=== PATIENT | female | born 1945 | race Caucasian/White ===

== ENCOUNTER 2019-12-30 21:04 | Inpatient (IN) | payer MEDICARE, SELFPAY ==
[2019-12-30] VITALS (10 sets, daily range): BP systolic 84–132; BP diastolic 51–70; PULSE 92–157; RESP 17–26; TEMP 35.7–36.6; O2SAT 94–100; BMI 38.7
--- NOTE | ~2019-12-30 | XR_ITS ---
XR chest 2V 12/30/2019 21:35 Indication: Shortness of breath with exertion. Tachypnea. History of A. fib. Procedure: 2 view chest Comparison: Comparison to multiple prior studies sequentially, with oldest reviewed study dated 03/07. Findings: Moderate cardiomegaly. No focal air space disease, pulmonary edema, pleural effusion or dhiraj pected pneumothorax. No acute osseous abnormality. Impression: 1: No acute cardiopulmonary disease. Reviewed, dictated and finalized at location A. Impression: 1: No acute cardiopulmonary disease.
--- NOTE | 2019-12-30 21:15 | ECG_ITS ---
Measurements Intervals [place] Rate: 141 P: NH: 0 QRS: 13 QRSD: 86 T: 133 QT: 317 QTc: 486 Interpretive Statements ATRIAL FIBRILLATION WITH RAPID VENTRICULAR RESPONSE RSR' IN V1 OR V2, CONSIDER RIGHT VENTRICULAR HYPERTROPHY OR RIGHT VCD LOW QRS VOLTAGE IN PRECORDIAL LEADS BORDERLINE ST-T WAVE ABNORMALITY- DIFFUSE LEADS ABNORMAL ECG Electronically Signed On 12-31-2019 10:02:18 CDT by Jaylen Darnell D.O.
[2019-12-30 21:33] LABS: Basophils Percent Auto 0.6 % (0.2-1.2); Eosinophils Percent Auto 0.2 % (0-4.4); Hematocrit 25.4 % (37.0-47.0); Hemoglobin 8.1 g/dL (12.0-15.0); Immature Granulocyte Absolute 0.24 K/mm3 (0.00-0.031); Immature Granulocyte Percent A 3.7 % (0-0.5); Lymphocytes Absolute Auto 1.21 K/mm3 (0.9-3.2); Lymphocytes Percent Auto 18.7 % (18.3-44.2); Mean Corpuscular HGB Conc 31.9 g/dl (32-36); Mean Corpuscular Hemoglobin 34.5 pg (26-34); Mean Corpuscular Volume 108.1 fl (80-100); Mean Platelet Volume 10.4 fl (7.4-10.4); Monocytes Absolute Auto 0.4 K/mm3 (0.1-0.6); Monocytes Percent Auto 6.8 % (2.6-8.5); Neutrophils Absolute Auto 4.5 K/mm3 (1.3-6.7); Nucleated Red Blood Cells Perc 0.5 % (0.0-0.2); Platelet Count Result 145 k/mm3 (150-375); Red Blood Count 2.35 M/mm3 (4.2-5.4); Red Cell Distribution Width 14.4 % (11.5-14.5); White Blood Count 6.5 K/mm3 (4.5-10.0)
[2019-12-30 21:45] LABS: Alanine Aminotransferase 14 U/L (4-35); Albumin Level 3.1 g/dL (3.5-5.1); Alkaline Phosphatase 46 U/L (38-126); Anion Gap 11 mmol/L (8-16); Aspartate Amino Transferase 29 U/L (14-36); Bilirubin,Total 0.7 mg/dL (0.2-1.3); Blood Urea Nitrogen 60 mg/dL (7-17); Calcium 7.7 mg/dL (8.4-10.2); Carbon Dioxide 21 mmol/L (22-30); Chloride 103 mmol/L (98-107); Estimated CRCL calculation 58 ml/min; Estimated Glomerular Filt Rate 54; Glucose 156 mg/dL (65-105); Sodium 135 mmol/L (137-145)
[2019-12-30] MEDS: dilTIAZem HCl INJ 25 MG/5 ML VIAL 10 MG IV PUSH (21:46)
--- NOTE | 2019-12-30 21:49 | PC.NURSE ---
Patient unable to provide urine at this time. Will check in a little bit. Patient will use commode at bedside
--- NOTE | 2019-12-30 22:01 | ED.WEAKNESS ---
HPI - Weakness General Chief complaint: Weakness Stated complaint: weakness Time Seen by Provider: 12/30/19 21:16 History of Present Illness HPI Narrative: Patient is a 74-year-old female who presents the ER with weakness. Ongoing for last 1 to 2 weeks but significantly worsened 3 days ago. Patient is short of breath with exertion. She has no chest pain or orthopnea. Patient reports that she usually has dark schools stools from taking her iron however on Sunday she had a large dark black loose bowel movement. Patient is then felt significantly weaker. She said no loss of consciousness. She is on Xarelto. She sees Dr. Lopez for her cardiac care. No weight gain or new edema. Related Data Allergies Allergy/AdvReac Type Severity Reaction Status Date / Time Penicillins Allergy Unknown Unknown Verified 12/30/19 21:50 Review of Systems Review of Systems: All systems reviewed & are unremarkable except as noted in HPI and below Constitutional: Constitutional: Denies chills, Denies fever(s) and Reports weakness ENT: Denies nasal congestion and Denies sore throat Cardiovascular: Cardiovascular: Denies chest pain, Reports rapid heart rate and Denies radiating jaw, neck or arm pain Respiratory: Respiratory: Denies cough, Reports dyspnea and Denies wheezing Gastrointestinal: Gastrointestinal: Denies abdominal pain, Denies nausea and Denies vomiting PMF Past Medical History Medical History (Updated 12/31/19 @ 00:02 by Mehrdad Nguyen MD) Chronic diastolic congestive heart failure Chronic kidney disease, stage 2 (mild) COPD (chronic obstructive pulmonary disease) Diabetic autonomic neuropathy associated with type 2 diabetes mellitus Essential (primary) hypertension Idiopathic gout, unspecified site Iron deficiency anemia due to chronic blood loss terminal block assembler current use of anticoagulant therapy MDD (major depressive disorder), recurrent episode, mild Mixed hyperlipidemia Persistent atrial fibrillation Type 2 diabetes mellitus with diabetic neuropathy, unspecified Ulcer of esophagus with bleeding Venous insufficiency (chronic) (peripheral) Family History Family History (Updated 12/20/09 @ 21:46 by DOCTOR UNKNOWN) Other Cerebrovascular accident Diabetes mellitus Family history of elevated blood lipids Family history of premature coronary heart disease Hypertension Social History Social History Smoking status: Never smoker Smoking end date: 05/07/77 Alcohol intake: never Exam Narrative: Exam Narrative: GENERAL: Well-appearing, well-nourished, and in no acute distress. HEAD: Normocephalic, atraumatic. ENT: Mucous membranes moist. CHEST: Clear to auscultation. No respiratory distress. HEART: Irregular regular rate and rhythm and tachycardic. Normal peripheral pulses. ABDOMEN: Soft, nontender, nondistended. Guaiac positive on rectal exam without gross blood. EXTREMITIES: Normal range of motion. Chronic lower extremity edema. SKIN: Warm, dry, no rash. NEURO: Alert and oriented x3. PSYCH: Normal mood and affect. Course Course Emergency Course: Admit to hospitalist service. We will add on sotalol to diltiazem drip to try to control heart rate. Patient's blood pressure goes down we will hold the diltiazem and see if the sotalol works. Hemoglobin trending down. Protonix ordered. Blood GI consulted. Vital Signs Vital signs: Vital Signs Temperature 97.8 F 12/30/19 21:04 Pulse Rate 147 H 12/30/19 21:04 Respiratory Rate 23 H 12/30/19 21:04 Blood Pressure 132/70 12/30/19 21:04 Pulse Oximetry 100 12/30/19 21:04 Temperature 97.9 F 12/30/19 23:35 Pulse Rate 92 12/30/19 23:35 Respiratory Rate 20 12/30/19 23:35 Blood Pressure 111/65 12/30/19 23:35 Pulse Oximetry 100 12/30/19 23:35 MDM - Weakness Lab Data Result diagrams: 12/30/19 21:22 12/30/19 21:22 Labs: Lab Results 12/30/19 12/30/19 12/30/19 Range/Units 21:22 21:
[2019-12-30] MEDS: PANTOPRAZOLE SODIUM IV 40 MG VIAL IV PUSH (22:04)
--- NOTE | 2019-12-30 23:10 | PC.NURSE ---
Assumed care of pt. at this time. Report from ANGELINA Thomas
[2019-12-31] VITALS (26 sets, daily range): BP systolic 96–116; BP diastolic 47–78; PULSE 78–124; RESP 18–24; TEMP 36.1–36.7; O2SAT 97–100
--- NOTE | 2019-12-31 00:08 | ADMGEN ---
This patient, Gabriela Castillo, was admitted to IMU Room 202-01. Patient/family oriented to hospital policies and general routines including ID bracelet, bed and alarms, visiting hours, pain management, procedures, bathroom and other care routines, personal items, smoking policy, room service/diet, and visiting hours. Valuables list has been completed. Information on how to activate the Rapid Response Team has been discussed. Patient/Family are encouraged to report perceived risks to care and to ask questions if they do not understand what they are told or what they should do.
[2019-12-31] MEDS: SODIUM CHLORIDE 0.9% IV 1,000 ML 100 ML IV CONT ×2 (00:13→08:57)
[2019-12-31 06:07] LABS: Add Urine Microscopic? YES; Appearance Urine Cloudy (Clear); Bacteria Urine 4+ /hpf; Bilirubin Urine Negative (Negative); Blood Urine Negative (Negative); Color Urine Yellow (Yellow); Glucose Urine UA Negative (Negative); Ketones Urine Negative (Negative); Leukocyte Esterase Ur 2+ LEU/UL (Negative); Mucus Urine Few /lpf; Nitrate Urine Positive (Negative); Protein Urine Negative (Negative); RBC Urine 0-2 /hpf (0-2); Specific Grav Ur 1.015 (1.001-1.035); Squamous Epithelial Cell Urine Many /hpf (Few); WBC Clumps Urine Present /HPF; WBC Urine >75 /hpf
[2019-12-31 07:57] LABS: Glucose Point of Care 122 (65-105)
--- NOTE | 2019-12-31 08:46 | PM.IMHP ---
H&P: HPI History of Present Illness Date/Time: 12/31/19 06:00 Chief complaint: weakness, GI bleed on Sunday Narrative: Gabriela Castillo is a 74 year old female with a past medical history of paroxysmal atrial fibrillation on chronic anticoagulation, successful synchronized cardioversion December 2018, prior GI bleed due to esophagitis and gastric ulcer ( 11/2016) and chronic anemia who presented to the ER For generalized weakness and she suspect she had another GI bleed. She reports that on Sunday she had to large mushy melenic stools. she woke up feeling funny that day. Since that time she has felt more weak. She denies feeling short of breath. She never feels palpitations or her heart racing any time she is in AFib RVR. She has not noticed any increased lower extremity swelling. She does have chronic venous stasis dermatitis that is unchanged. She did notice some burning in her epigastric region at lasted approximately 3 hours on Sunday. she has had some fullness in her upper abdomen and decreased appetite over the last couple of days. Her weight has been stable. She denies chronic reflux symptoms. She has been having an intermittent sore throat for the last couple of weeks. She denies any postnasal drip or nasal congestion. She has not had any cough or congestion. When EMS arrived at the patient's house she was tachycardic. Her heart rate was in the 140s to 150s when she arrived to the ER. She has not had any weight gain, orthopnea or paroxysmal nocturnal dyspnea. She has noticed that she is more pale than usual. At the time of my evaluation the patient is mildly diaphoretic. In the ER the patient received a Cardizem bolus was placed on a Cardizem drip. She did receive 1 dose of oral sotalol. By the time the patient arrived to the IMU she was rate controlled with heart rate in 70s. Her blood pressure was borderline low at 84 systolic. Her Cardizem drip was discontinued. Her heart rate remained controlled in the 80s to 90s. Her systolic blood pressures improved to low 100s. She denies any NSAID use. At the time of my evaluation the patient's home medications have not yet been reconciled. The patient does not have her medication list with her she sent home with her son. Her son is not answering the phone for nursing staff. Review of Systems Review of Systems: Narrative: 12 systems were reviewed with pertinent positives and negatives per HPI. Except as documented in the HPI, all other systems were reviewed and are negative. [facility] Past Medical History Medical History (Updated 12/31/19 @ 09:03 by Karen Hamm DO) Chronic diastolic congestive heart failure Chronic kidney disease, stage 2 (mild) Chronic venous stasis dermatitis COPD (chronic obstructive pulmonary disease) Diabetic autonomic neuropathy associated with type 2 diabetes mellitus Essential (primary) hypertension GERD (gastroesophageal reflux disease) GI bleeding 2002, January 2016, November 2016 Idiopathic gout, unspecified site Iron deficiency anemia due to chronic blood loss retirement current use of anticoagulant therapy MDD (major depressive disorder), recurrent episode, mild Mixed hyperlipidemia Persistent atrial fibrillation aaron with synchronized cardioversion December [address] Lopez Pulmonary embolism 2012 Type 2 diabetes mellitus with diabetic neuropathy, unspecified Surgical History Surgical History (Updated 12/31/19 @ 09:03 by Karen Hamm DO) History of ankle surgery ORIF left ankle July 2007 History of bilateral cataract extraction History of esophagogastroduodenoscopy (EGD) November 2016 demonstrating esophagitis, gastritis and gastric ulcer History of right oophorectomy Hx of tonsillectomy Family History Family History (Updated 12/31/19 @ 09:03 by Karen Hamm DO) Other Adopted Social History Social History (Updated 12/31/19 @ 09:05 by Karen Hamm DO) Social History: She lives alone.
[2019-12-31 09:03] LABS: Hematocrit 22.2 % (37.0-47.0); Hemoglobin 7.2 g/dL (12.0-15.0); Mean Corpuscular HGB Conc 32.4 g/dl (32-36); Mean Corpuscular Hemoglobin 34.4 pg (26-34); Mean Corpuscular Volume 106.2 fl (80-100); Mean Platelet Volume 10.9 fl (7.4-10.4); Platelet Count Result 136 k/mm3 (150-375); Red Blood Count 2.09 M/mm3 (4.2-5.4); Red Cell Distribution Width 14.6 % (11.5-14.5); White Blood Count 5.2 K/mm3 (4.5-10.0)
[2019-12-31 09:14] LABS: Potassium 3.9 mmol/L (3.4-5.0)
[2019-12-31 09:17] LABS: Anion Gap 6 mmol/L (8-16); Blood Urea Nitrogen 56 mg/dL (7-17); Calcium 7.6 mg/dL (8.4-10.2); Carbon Dioxide 25 mmol/L (22-30); Chloride 106 mmol/L (98-107); Estimated CRCL calculation 60 ml/min; Estimated Glomerular Filt Rate 54; Glucose 115 mg/dL (65-105); Sodium 137 mmol/L (137-145)
[2019-12-31 09:29] LABS: Iron 30 ug/dL (37-170)
[2019-12-31 09:39] LABS: Percent Iron Saturation 8 % (20-50)
[2019-12-31 11:51] LABS: Glucose Point of Care 111 (65-105)
--- NOTE | 2019-12-31 12:02 | WPDGICN ---
Assessment and Plan Assessment and plan (1) Acute upper GI bleed: Code(s): K92.2 - Gastrointestinal hemorrhage, unspecified Status: Acute Assessment and Plan: Patient has GI bleeding manifested by melenic stools and low hemoglobin. Upper GI source is suspected. Plan is for EGD tomorrow. Xarelto anticoagulation will be held. Patient will be started on proton pump inhibitor therapy. She will be transfused to a stable hemoglobin. EGD anticipated in the morning. Will follow with you during the interim. 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 She has a prior history of gastric ulcer in 2006. She is chronically anemic. She no longer takes proton pump inhibitors. She denies nonsteroidal anti-inflammatory agent use. She was in usual state of health until Sunday when she began to pass black diarrhea stools. She felt somewhat weak and lightheaded. This improved on Sunday and Sunday but again yesterday on Sunday began to have weakness. She presented to the emergency room was found to have anemia. Stools were Hemoccult positive and black and melenic in nature. Patient denies any overt reddish blood. She denies abdominal pain. Her diet has remained unchanged. She has noted discomfort with eating. Past medical history is significant for atrial fibrillation as stated. History of gastric ulcer in 2017. History of COPD, congestive heart failure, gout, hyperlipidemia, diabetes mellitus. Review of Systems Review of Systems: All systems reviewed & are unremarkable except as noted in HPI and below [facility] Past Medical History Medical History Chronic diastolic congestive heart failure Chronic kidney disease, stage 2 (mild) Chronic venous stasis dermatitis COPD (chronic obstructive pulmonary disease) Diabetic autonomic neuropathy associated with type 2 diabetes mellitus Essential (primary) hypertension GERD (gastroesophageal reflux disease) GI bleeding 2002, January 2016, November 2016 Idiopathic gout, unspecified site Iron deficiency anemia due to chronic blood loss [facility] current use of anticoagulant therapy MDD (major depressive disorder), recurrent episode, mild Mixed hyperlipidemia Persistent atrial fibrillation aaron with synchronized cardioversion December [address] Lopez Pulmonary embolism 2012 Type 2 diabetes mellitus with diabetic neuropathy, unspecified Surgical History Surgical History History of ankle surgery ORIF left ankle July 2007 History of bilateral cataract extraction History of esophagogastroduodenoscopy (EGD) November 2016 demonstrating esophagitis, gastritis and gastric ulcer History of right oophorectomy Hx of tonsillectomy Family History Family History (Updated 12/31/19 @ 09:03 by Karen Hamm DO) Other Adopted Social History Social History Social History: She lives alone. She is a former smoker but had a brief smoking history many years ago. She denies any alcohol use at all. She denies illicit substance use. Her son Jonatan is her power of civil rights attorney. Smoking packs per day: 1 Smoking cigarettes per day: 20.0 Years smoked: 10 Smoking pack-years: 10.00
[2019-12-31] MEDS: PANTOPRAZOLE SODIUM IV 40 MG VIAL IV PUSH ×2 (13:04→20:01)
[2019-12-31] MEDS: SODIUM CHLORIDE 0.9% IV 250 ML 30 ML IV CONT (15:01)
[2019-12-31] MEDS: ACETAMINOPHEN 325 MG TABLET 650 MG PO ×2 (15:50→22:50)
[2019-12-31 16:39] LABS: Glucose Point of Care 112 (65-105)
--- NOTE | 2019-12-31 16:56 | PM.IMPN ---
Progress Note: A&P Assessment and Plan (1) Atrial fibrillation with RVR: Code(s): I48.91 - Unspecified atrial fibrillation Status: Acute Assessment and Plan: patient has chronic atrial fibrillation. I think that part of her RVR was due to volume depletion from blood loss. The patient also may have missed some of her cardiac medications. Patient's rate is now controlled. Will resume the patient's home medications beta-adamaris and diltiazem for blood pressure and rate control (2) Acute upper GI bleed: Code(s): K92.2 - Gastrointestinal hemorrhage, unspecified Status: Acute Assessment and Plan: patient has been started on Protonix IV 40 mg q.12 hours and gastroenterology has been consulted repeat CBC 7.2 ,will transfuse 2 units of packed cells. and follow serially (3) Acute blood loss anemia: Code(s): D62 - Acute posthemorrhagic anemia Status: Acute Assessment and Plan: iron studies compatible with iron deficiency anemia with B12 toward low side suggesting component is chronic also but acute drop in hemoglobin and will transfuse to maintain hemoglobin above 7 (4) Essential (primary) hypertension: Code(s): I10 - Essential (primary) hypertension Status: Acute Assessment and Plan: blood pressure toward low side once transfuse volume increase suspect will be able to tolerate the diltiazem and beta-adamaris to control rate Subjective Date/time seen: 12/31/19 16:56 Interval history: date of visit 12/30. 74-year-old white female with chronic AFib on anticoagulation admitted with weakness dark stools which were guaiac positive. Chronic anemia with hemoglobin 9-10 but presented with hemoglobin of 8.2. no shortness of breath or chest pain no nausea or vomiting tells me her last BM was 3 days ago and usually dark with her iron therapy Exam Narrative: Exam Narrative: PHYSICAL EXAM: blood pressure 100/65 pulse 100 sat 99% on room air General: Mildly ill-appearing, obese HEENT: , no scleral icterus, pupils are equal and reactive, Respiratory: clear to auscultation bilaterally Cardiovascular: irregularly irregular, heart rate ranging between 90 and low 100's, 2+ radial pulses, 1+ bilateral pedal pulses Gastrointestinal: obese, nontender, nondistended, positive bowel sounds Skin: generalized pallor, Musculoskeletal: marked venous stasis /peripheral vascular changes bilateral lower extremities Neurological: alert and oriented, speech is clear, no localizing neurologic deficits noted : deferred Hematologic/lymphatic: no petechiae, bruising or significant anterior cervical lymphadenopathy Objective Data Vital Signs Vital Signs: Vital Signs - 24 hr 12/30/19 21:04 12/30/19 21:17 12/30/19 21:19 Temperature 36.6 C Pulse Rate 147 H 157 H 143 H Respiratory Rate 23 H 21 H Blood Pressure 132/70 104/51 L Pulse Oximetry 100 100 12/30/19 21:48 12/30/19 22:03 12/30/19 22:04 Temperature 35.7 C L Pulse Rate 153 H 128 H 115 H Respiratory Rate 26 H 17 Blood Pressure 127/61 102/61 102/61 Pulse Oximetry 99 100 12/30/19 22:30 12/30/19 22:31 12/30/19 23:35 Temperature 36.6 C Pulse Rate 134 H 92 Respiratory Rate 18 20 Blood Pressure 98/62 L 100/66 111/65 Pulse Oximetry 94 100 12/30/19 23:50 12/31/19 00:20 12/31/19 01:53 Temperature 36.6 C Pulse Rate 100 82 78 Respiratory Rate 20 Blood Pressure 84/57 L Pulse Oximetry 100 12/31/19 01:54 12/31/19 04:00 12/31/19 05:40 Temperature 36.7 C Pulse Rate 82 93 102 H Respiratory Rate 20 Blood Pressure 104/57 L 102/65 Pulse Oximetry 97 12/31/19 08:00 12/31/19 10:00 12/31/19 12:00 Temperature 36.4 C 36.5 C Pulse Rate 100 108 H 102 H Respiratory Rate 24 H 22 H Blood Pressure 116/72 110/69 Pulse Oximetry 100 97 12/31/19 15:04 12/31/19 15:20 12/31/19 16:20 Temperature 36.1 C L 36.6 C 36.4 C L Pulse Rate 102 H 103 H 116 H Respiratory Rat
[2019-12-31] MEDS: METOPROLOL TARTRATE 50 MG TAB 100 MG PO (20:00)
[2019-12-31 21:31] LABS: Glucose Point of Care 116 (65-105)
[2020-01-01] VITALS (17 sets, daily range): BP systolic 93–113; BP diastolic 58–78; PULSE 81–117; RESP 17–22; TEMP 35.7–36.6; O2SAT 94–100
[2020-01-01 05:07] LABS: Basophils Absolute Auto 0.1 K/mm3 (0.0-0.1); Basophils Percent Auto 1.1 % (0.2-1.2); Eosinophils Absolute Auto 0.1 K/mm3 (0-0.3); Eosinophils Percent Auto 2.1 % (0-4.4); Hemoglobin 9.4 g/dL (12.0-15.0); Immature Granulocyte Percent A 2.3 % (0-0.5); Lymphocytes Absolute Auto 0.99 K/mm3 (0.9-3.2); Lymphocytes Percent Auto 22.7 % (18.3-44.2); Mean Corpuscular HGB Conc 32.4 g/dl (32-36); Mean Corpuscular Hemoglobin 32.1 pg (26-34); Mean Platelet Volume 10.5 fl (7.4-10.4); Monocytes Absolute Auto 0.4 K/mm3 (0.1-0.6); Monocytes Percent Auto 8.7 % (2.6-8.5); Neutrophils Absolute Auto 2.8 K/mm3 (1.3-6.7); Neutrophils Percent Auto 63.1 % (45.5-73.1); Nucleated Red Blood Cells Perc 0.5 % (0.0-0.2); Platelet Count Result 135 k/mm3 (150-375); Red Blood Count 2.93 M/mm3 (4.2-5.4); Red Cell Distribution Width 20.6 % (11.5-14.5); White Blood Count 4.4 K/mm3 (4.5-10.0)
[2020-01-01 05:27] LABS: Anion Gap 7 mmol/L (8-16); Blood Urea Nitrogen 39 mg/dL (7-17); Calcium 7.9 mg/dL (8.4-10.2); Carbon Dioxide 24 mmol/L (22-30); Chloride 107 mmol/L (98-107); Estimated CRCL calculation 60 ml/min; Estimated Glomerular Filt Rate 54; Glucose 115 mg/dL (65-105); Potassium 3.8 mmol/L (3.4-5.0); Sodium 138 mmol/L (137-145)
[2020-01-01] MEDS: CYANOCOBALAMIN INJ 1,000 MCG/ML VIAL 1000 MCG IM (06:56)
[2020-01-01] MEDS: PANTOPRAZOLE SODIUM IV 40 MG VIAL IV PUSH (08:15)
--- NOTE | 2020-01-01 09:25 | PC.NURSE ---
Patient to GI lab via stretcher. Report given to ANGELINA Obrien.
[2020-01-01 09:29] LABS: Glucose Point of Care 99 (65-105)
[2020-01-01] MEDS: LACTATED RINGERS 1,000 ML 150 ML IV CONT (09:41)
--- NOTE | 2020-01-01 10:01 | WPDANESEPPF ---
Anes - Initial Pre Proc Eval Procedure: Operation Date: 01/01/20 10:30 Proposed Procedures p Esophagogastroduodenoscopy - Adam Conn MD Date/Time: 01/01/20 10:01 Surgeon: Karen Hamm DO Pre Op Diagnosis: weakness, GI bleed on Sunday Patient Data Age: 74 Gender: F Height: 5 ft 9 in Weight: 118.7 kg Last Vital Signs Temp 97.6 F 01/01/20 09:53 Pulse 117 H 01/01/20 09:53 Resp 20 01/01/20 09:53 BP 110/67 01/01/20 09:53 Pulse Ox 97 01/01/20 09:53 Allergies Allergy/AdvReac Type Severity Reaction Status Date / Time Penicillins Allergy Unknown Unknown Verified 01/01/20 09:48 Home Medications Medication Instructions Recorded Confirmed Type allopurinol 300 mg tablet 300 mg PO DAILY #90 tablet 07/24/19 12/31/19 Rx polysaccharide iron complex 150 mg 150 mg PO BID #180 cap 09/08/19 12/31/19 Rx iron capsule spironolactone 50 mg tablet 50 mg PO DAILY #30 tablet 10/13/19 12/31/19 Rx atorvastatin 20 mg PO DAILY 12/31/19 12/31/19 History diltiazem HCl [DILT-XR] 120 mg PO DAILY 12/31/19 12/31/19 History furosemide 40 mg PO BID 12/31/19 12/31/19 History magnesium 250 mg PO DAILY 12/31/19 12/31/19 History metformin 500 mg PO BID 12/31/19 12/31/19 History metoprolol tartrate 100 mg PO Q12H 12/31/19 12/31/19 History pantoprazole 40 mg PO QAM 12/31/19 12/31/19 History rivaroxaban [Xarelto] 20 mg PO DAILY 12/31/19 12/31/19 History Laboratory Tests 12/30/19 12/31/19 12/31/19 21:53 08:24 08:24 WBC RBC Hgb Hct MCV MCH MCHC RDW Plt Count MPV Immature Gran % (Auto) Neut % (Auto) Lymph % (Auto) Swisher % (Auto) Eos % (Auto) Baso % (Auto) Lymph # (Auto) Swisher # (Auto) Eos # (Auto) Baso # (Auto) Abs Immat Gran (auto) Absolute Neuts (auto) Absolute Nucleated RBC Nucleated RBC % Sodium Potassium Chloride Carbon Dioxide Anion Gap BUN Creatinine Estim Creat Clear Calc Estimated GFR Glucose POC Capillary Glucose Calcium Ferritin 28.70 ng/mL ng/mL (11.1-264) Vitamin B12 277.0 pg/mL pg/mL (239-931) Blood Type A Positive Antibody Screen Negative Crossmatch See Detail 12/31/19 12/31/19 12/31/19 11:32 16:31 21:28 WBC RBC Hgb Hct MCV MCH MCHC RDW Plt Count MPV Immature Gran % (Auto) Neut % (Auto) Lymph % (Auto) Swisher % (Auto) Eos % (Auto) Baso % (Auto) Lymph # (Auto) Swisher # (Auto) Eos # (Auto) Baso # (Auto) Abs Immat Gran (auto) Absolute Neuts (auto) Absolute Nucleated RBC Nucleated RBC % Sodium Potassium Chloride Carbon Dioxide Anion Gap BUN Creatinine Estim Creat Clear Calc Estimated GFR Glucose POC Capillary Glucose 111 mg/dl H mg/dl 112 mg/dl H mg/dl 116 mg/dl H mg/dl (65-105) (65-105) (65-105) Calcium Ferritin Vitamin B12 Blood Type Antibody Screen Crossmatch 01/01/20 01/01/20 01/01/20 04:27 04:27 08:12 WBC 4.4 K/mm3 L K/mm3 (4.5-10.0) RBC 2.93 M/mm3 L M/mm3 (4.2-5.4) Hgb 9.4 g/dL L g/dL (12.0-15.0) Hct 29.0 % L % (37.0-47.0) MCV 99.0 fl D f
[2020-01-01] MEDS: BENZOCAINE (*SP) 60 ML SPRAY CAN (HURRICAINE) 1 SPRAY MUCOUS MEM (10:16)
--- NOTE | 2020-01-01 11:05 | PC.NURSE ---
Patient returned to room following EGD. Report received from ANGELINA Horton.
[2020-01-01] MEDS: MAGNESIUM OXIDE 200 MG TABLET PO (11:24)
[2020-01-01] MEDS: ATORVASTATIN 20 MG TABLET PO (11:24)
[2020-01-01] MEDS: allopurinoL 300 MG TABLET PO (11:24)
[2020-01-01] MEDS: METOPROLOL TARTRATE 50 MG TAB 100 MG PO ×2 (11:34→21:09)
[2020-01-01 12:15] LABS: Glucose Point of Care 106 (65-105)
[2020-01-01 17:17] LABS: Glucose Point of Care 119 (65-105)
--- NOTE | 2020-01-01 17:31 | PM.IMPN ---
Progress Note: A&P Assessment and Plan (1) Atrial fibrillation with RVR: Code(s): I48.91 - Unspecified atrial fibrillation Status: Acute Assessment and Plan: patient has chronic atrial fibrillation. I think that part of her RVR was due to volume depletion from blood loss. The patient also may have missed some of her cardiac medications. Patient's rate is now better controlled. Will resume the patient's home medications beta-adamaris but diltiazem still on hold with low bp (2) Acute upper GI bleed: Code(s): K92.2 - Gastrointestinal hemorrhage, unspecified Status: Acute Assessment and Plan: patient has been started on Protonix IV 40 mg q.12 hours and EGD today revealed gastric ulcers but no active bleeding repeat CBC hgb 9.4 after 2 units PRBC (3) Acute blood loss anemia: Code(s): D62 - Acute posthemorrhagic anemia Status: Acute Assessment and Plan: iron studies compatible with iron deficiency anemia with B12 toward low side suggesting component is chronic also but acute drop in hemoglobin and will transfuse to maintain hemoglobin above 7 cyanocobalmine 1000 microgram today and IV venofer 300 mg today and tomorrow (4) Essential (primary) hypertension: Code(s): I10 - Essential (primary) hypertension Status: Acute Assessment and Plan: blood pressure toward low side and beta-adamaris and still so post transfusions so will hold diltiazem but continue beta-adamaris for rate control Subjective Date/time seen: 01/01/20 17:31 Interval history: date of visit 12/31. 74-year-old white female with chronic AFib on anticoagulation admitted with weakness dark stools which were guaiac positive. Chronic anemia with hemoglobin 9-10 but presented with hemoglobin of 8.2. no shortness of breath or chest pain no nausea or vomiting tells me her last BM was 3 days prior to admission and none yesterday and usually dark with her iron therapy Exam Narrative: Exam Narrative: PHYSICAL EXAM: blood pressure 100/66 pulse 98 sat 95% on room air HEENT: , no scleral icterus, pupils are equal and reactive, Respiratory: clear Cardiovascular: irregularly irregular, heart rate ranging between 90 and low 100's, 2+ radial pulses, 1+ bilateral pedal pulses Gastrointestinal: obese, nontender, nondistended, positive bowel sounds Skin: generalized pallor, Musculoskeletal: marked venous stasis /peripheral vascular changes bilateral lower extremities Neurological: alert and oriented, speech is clear, no localizing neurologic deficits noted Objective Data Vital Signs Vital Signs: Vital Signs - 24 hr 12/31/19 17:42 12/31/19 17:57 12/31/19 18:00 Temperature 36.4 C L 36.4 C L Pulse Rate 112 H 108 H 110 H Respiratory Rate 20 20 Blood Pressure 96/66 L 96/62 L Pulse Oximetry 100 100 12/31/19 18:57 12/31/19 19:53 12/31/19 19:57 Temperature 36.6 C 36.6 C 36.6 C Pulse Rate 107 H 111 H 111 H Respiratory Rate 20 20 20 Blood Pressure 116/78 111/71 111/71 Pulse Oximetry 100 100 100 12/31/19 20:00 12/31/19 20:57 12/31/19 21:33 Temperature 36.6 C 36.6 C Pulse Rate 112 H 109 H 99 Respiratory Rate 20 20 Blood Pressure 105/47 L 110/67 Pulse Oximetry 99 97 12/31/19 22:00 12/31/19 23:54 01/01/20 00:00 Temperature 36.7 C Pulse Rate 108 H 100 95 Respiratory Rate 20 Blood Pressure 100/51 L Pulse Oximetry 97 01/01/20 02:00 01/01/20 04:00 01/01/20 06:00 Temperature 36.6 C Pulse Rate 92 99 111 H Respiratory Rate 20 Blood Pressure 103/74 Pulse Oximetry 97 01/01/20 08:00 01/01/20 09:51 01/01/20 09:53 Temperature 36.4 C 36.4 C Pulse Rate 106 H 117 H Respiratory Rate 22 H 20 Blood Pressure 103/68 110/67 Pulse Oximetry 99 97 97 01/01/20 10:30 01/01/20 10:40 01/01/20 10:50 Temperature Pulse Rate 103 H 104 H 102 H Respiratory Rate 20 17 22 H Blood Pressure 93/58 L 98/67 L 110/78 Pulse Oximetry 100 99 98
--- NOTE | 2020-01-01 17:46 | PC.NURSE ---
This patient, Gabriela Castillo, was transferred to [facility] on 01/01/20 at 1745. Personal belongings sent with patient. Report given to ANGELINA Lopez. Appropriate documentation sent with patient.
--- NOTE | 2020-01-01 17:57 | PC.NURSE ---
This patient, Gabriela Castillo, was received from [[facility] ] on 01/01/20 at 1750. Report given by Rachel. Personal belongings list checked and signed. Patient/family oriented to unit policies and routines
[2020-01-01 17:59] LABS: Glucose Point of Care 118 (65-105)
[2020-01-01] MEDS: PANTOPRAZOLE 40 MG TABLET PO (21:10)
[2020-01-01 21:22] LABS: Glucose Point of Care 129 (65-105)
[2020-01-02 06:00] VITALS: BP 104/70; PULSE 108; RESP 18; TEMP 36.7; O2SAT 100
[2020-01-02 06:16] LABS: Basophils Percent Auto 0.5 % (0.2-1.2); Eosinophils Absolute Auto 0.1 K/mm3 (0-0.3); Eosinophils Percent Auto 1.2 % (0-4.4); Hematocrit 27.9 % (37.0-47.0); Hemoglobin 8.9 g/dL (12.0-15.0); Immature Granulocyte Absolute 0.09 K/mm3 (0.00-0.031); Immature Granulocyte Percent A 2.1 % (0-0.5); Lymphocytes Absolute Auto 0.85 K/mm3 (0.9-3.2); Lymphocytes Percent Auto 20.1 % (18.3-44.2); Mean Corpuscular HGB Conc 31.9 g/dl (32-36); Mean Corpuscular Hemoglobin 32.1 pg (26-34); Mean Corpuscular Volume 100.7 fl (80-100); Mean Platelet Volume 10.4 fl (7.4-10.4); Monocytes Absolute Auto 0.4 K/mm3 (0.1-0.6); Neutrophils Absolute Auto 2.8 K/mm3 (1.3-6.7); Neutrophils Percent Auto 67.1 % (45.5-73.1); Platelet Count Result 132 k/mm3 (150-375); Red Blood Count 2.77 M/mm3 (4.2-5.4); Red Cell Distribution Width 20.3 % (11.5-14.5); White Blood Count 4.2 K/mm3 (4.5-10.0)
[2020-01-02 07:24] LABS: Anion Gap 7 mmol/L (8-16); Blood Urea Nitrogen 27 mg/dL (7-17); Calcium 7.8 mg/dL (8.4-10.2); Carbon Dioxide 25 mmol/L (22-30); Chloride 107 mmol/L (98-107); Estimated CRCL calculation 61 ml/min; Estimated Glomerular Filt Rate 54; Glucose 120 mg/dL (65-105); Potassium 3.8 mmol/L (3.4-5.0); Sodium 139 mmol/L (137-145)
--- NOTE | 2020-01-02 07:53 | WPDGIPROGNO ---
Progress Note: A&P Additional Plan Patient feels good today. No abdominal pain. Tolerating diet. patient reports no ongoing pain. No obvious blood in his stools. Physical exam reveals her to be alert. Vital signs stable. HEENT exam unremarkable. Lungs are clear to auscultation and percussion. Heart is without murmur heart rate is irregularly irregular. Abdomen bowel sounds are present soft nontender with no organomegaly. She is modestly obese. Labs reveal hemoglobin 8.9, hematocrit 27.9, MCV 100. Impression 1. Multiple gastric ulcers. This was etiology for recent GI blood loss. Plan is to avoid nonsteroidal anti-inflammatory agents. Histology is still pending and will be reviewed next week after discharge. Anticipate follow-up EGD in 2 months. Patient should be maintained on proton pump inhibitor long-term. She has a history of gastric ulcer several years ago. I would advise continuing PPI even after healing of these ulcers. Hopefully discharge today. 2. Atrial fibrillation. Patient previously on anticoagulation. I would avoid Xarelto anticoagulation for 2 weeks prior to resuming. Resume only if necessary per cardiology service. Subjective Date/time seen: 01/02/20 07:53 Objective Data Vital Signs Vital Signs: Vital Signs - 24 hr 01/01/20 08:00 01/01/20 09:51 01/01/20 09:53 Temperature 97.6 F 97.6 F Pulse Rate 106 H 117 H Respiratory Rate 22 H 20 Blood Pressure 103/68 110/67 Pulse Oximetry 99 97 97 01/01/20 10:30 01/01/20 10:40 01/01/20 10:50 Temperature Pulse Rate 103 H 104 H 102 H Respiratory Rate 20 17 22 H Blood Pressure 93/58 L 98/67 L 110/78 Pulse Oximetry 100 99 98 01/01/20 11:30 01/01/20 11:34 01/01/20 12:00 Temperature 97.7 F Pulse Rate 108 H 100 109 H Respiratory Rate 22 H Blood Pressure 96/60 L Pulse Oximetry 98 01/01/20 16:00 01/01/20 18:10 01/01/20 21:09 Temperature 97.5 F L 96.3 F L Pulse Rate 98 81 108 H Respiratory Rate 20 18 Blood Pressure 99/66 L 95/70 L Pulse Oximetry 95 94 01/01/20 22:00 01/02/20 06:00 Temperature 97.7 F 98.0 F Pulse Rate 105 H 108 H Respiratory Rate 18 18 Blood Pressure 113/69 104/70 Pulse Oximetry 99 100 Intake/Output Intake/Output: Intake & Output 12/30/19 12/31/19 01/01/20 01/02/20 23:59 23:59 23:59 23:59 Intake Total 3012 1115 300 Output Total 1400 1300 Balance 1612 -185 300 Meds/Results Medications: Active Medications Generic Name Dose Route Start Last Admin Trade Name Freq PRN Reason Stop Dose Admin Acetaminophen 650 mg 12/31/19 15:41 12/31/19 22:50 Tylenol Tablet PO 650 mg Q6H PRN Administration Mild Pain (1-3) or Fever Allopurinol 300 mg 01/01/20 09:00 01/01/20 11:24 Zyloprim PO 300 mg DAILY WANDY Administration Atorvastatin Calcium 20 mg 01/01/20 09:00 01/01/20 11:24 Lipitor PO 20 mg DAILY WANDY Administration Dextrose 12.5 gm 12/31/19 18:14 Dextrose 50% Syringe IV PUSH PRN PRN Hypoglycemia Protocol Glucagon 1 mg 12/31/19 18:14 Glucagon For Inj IM PRN PRN Hypoglycemia Protocol Glucose 15 gm 12/31/19 18:14 Glutose 15 PO PRN PRN Hypoglycemia Protocol Dextrose 1,000 mls @ 100 mls/hr 12/31/19 18:14 Dextrose 5% 1,000 Ml IVPB PRN PRN Hypoglycemia Protocol Magnesium Oxide 200 mg 01/01/20 09:00 01/01/20 11:24 Mag-Ox PO 01/31/20 09:01 200 mg DAILY WANDY Administration Metoprolol Tartrate 100 mg 12/31/19 21:00 01/01/20 21:09 Lopressor PO 100 mg Q12HR WANDY Administration Pantoprazole Sodium 40 mg 01/01/20 21:00 01/01/20 21:10 Protonix PO 40 mg Q12HR WANDY Administration Radiology Results: ITS Impressions Chest X-Ray 12/30/19 21:42 Impression: 1: No acute cardiopulmonary disease. Labs Labs: Laboratory Results - last 24 hr 01/01/20 01/01/20 01/01/20 08:12 11:23 15:51 WBC RBC Hgb Hct MCV
[2020-01-02 08:37] LABS: Glucose Point of Care 118 (65-105)
[2020-01-02 09:10] VITALS: PULSE 88
[2020-01-02] MEDS: METOPROLOL TARTRATE 50 MG TAB 100 MG PO (09:10)
[2020-01-02] MEDS: PANTOPRAZOLE 40 MG TABLET PO (09:11)
[2020-01-02] MEDS: ATORVASTATIN 20 MG TABLET PO (09:11)
[2020-01-02] MEDS: MAGNESIUM OXIDE 200 MG TABLET PO (09:11)
[2020-01-02] MEDS: allopurinoL 300 MG TABLET PO (09:11)
--- NOTE | 2020-01-02 10:08 | WPDANESPN ---
Anes - Prog Note Post-Op Date/Time: 01/02/20 10:08 Cardiovascular status: normal Respiratory status: normal Airway patency: baseline Mental status: baseline Post-Op hydration status: normal Vital Signs: Last Vital Signs Temp 36.7 C 01/02/20 06:00 Pulse 88 01/02/20 09:10 Resp 18 01/02/20 06:00 BP 104/70 01/02/20 06:00 Pulse Ox 100 01/02/20 06:00 I/O: Intake & Output 01/01/20 01/02/20 01/02/20 23:59 07:59 15:59 Intake Total 120 300 120 Balance 120 300 120 Laboratory Tests 01/02/20 05:41 01/02/20 05:41 01/01/20 01/01/20 01/01/20 11:23 15:51 17:55 WBC RBC Hgb Hct MCV MCH MCHC RDW Plt Count MPV Immature Gran % (Auto) Neut % (Auto) Lymph % (Auto) [place] % (Auto) Eos % (Auto) Baso % (Auto) Lymph # (Auto) [place] # (Auto) Eos # (Auto) Baso # (Auto) Abs Immat Gran (auto) Absolute Neuts (auto) Absolute Nucleated RBC Nucleated RBC % Sodium Potassium Chloride Carbon Dioxide Anion Gap BUN Creatinine Estim Creat Clear Calc Estimated GFR Glucose POC Capillary Glucose 106 119 H 118 H Calcium 01/01/20 01/02/20 01/02/20 21:13 05:41 05:41 WBC 4.2 L RBC 2.77 L Hgb 8.9 L Hct 27.9 L MCV 100.7 H MCH 32.1 MCHC 31.9 L RDW 20.3 H Plt Count 132 L MPV 10.4 Immature Gran % (Auto) 2.1 H Neut % (Auto) 67.1 Lymph % (Auto) 20.1 [place] % (Auto) 9.0 H Eos % (Auto) 1.2 Baso % (Auto) 0.5 Lymph # (Auto) 0.85 L [place] # (Auto) 0.4 Eos # (Auto) 0.1 Baso # (Auto) 0.0 Abs Immat Gran (auto) 0.09 H Absolute Neuts (auto) 2.8 Absolute Nucleated RBC 0.0 Nucleated RBC % 0.0 Sodium 139 Potassium 3.8 Chloride 107 Carbon Dioxide 25 Anion Gap 7 L BUN 27 H D Creatinine 1.00 Estim Creat Clear Calc 61 Estimated GFR 54 L Glucose 120 H POC Capillary Glucose 129 H Calcium 7.8 L 01/02/20 08:27 WBC RBC Hgb Hct MCV MCH MCHC RDW Plt Count MPV Immature Gran % (Auto) Neut % (Auto) Lymph % (Auto) [place] % (Auto) Eos % (Auto) Baso % (Auto) Lymph # (Auto) [place] # (Auto) Eos # (Auto) Baso # (Auto) Abs Immat Gran (auto) Absolute Neuts (auto) Absolute Nucleated RBC Nucleated RBC % Sodium Potassium Chloride Carbon Dioxide Anion Gap BUN Creatinine Estim Creat Clear Calc Estimated GFR Glucose POC Capillary Glucose 118 H Calcium Microbiology 12/31/19 05:50 Urine Clean Catch Urine Culture - Final Escherichia Coli Post-procedural complaints: none Patient Feedback: Patient satisfied with anesthetic care.
[2020-01-02] MEDS: IRON SUCROSE COMPLEX 400 MG in SODIUM CHLORIDE 0.9% IV 250 ML 108 MG IVPB (10:14)
[2020-01-02 12:40] LABS: Glucose Point of Care 113 (65-105)
[2020-01-02 14:00] VITALS: BP 110/60; PULSE 90; RESP 20; TEMP 36.6; O2SAT 100
--- NOTE | 2020-01-07 13:06 | PM.DS ---
DS: Admitting Diagnosis Admitting Diagnosis Admitting Diagnosis: weakness, GI bleed on Sunday DS: Discharge Diagnosis Discharge Diagnosis (1) Atrial fibrillation with RVR: Code(s): I48.91 - Unspecified atrial fibrillation Status: Acute Assessment and Plan: patient has chronic atrial fibrillation. I think that part of her RVR was due to volume depletion from blood loss. The patient also may have missed some of her cardiac medications. Patient's rate better controlled at discharge. resumed the patient's home medications beta-adamaris and with increased bp diltiazem added back at discharge patient instructed not to resume her Xarelto at least until 01/18 and discuss with primary care or Cardiology before doing so (2) Acute upper GI bleed: Code(s): K92.2 - Gastrointestinal hemorrhage, unspecified Status: Acute Assessment and Plan: patient was started on Protonix IV 40 mg q.12 hours and EGD today revealed gastric ulcers but no active bleeding. D/c with protonix bid and repeat EGD 6-8 weeks CBC hgb 9.4 after 2 units PRBC and 8.9 at discharge (3) Acute blood loss anemia: Code(s): D62 - Acute posthemorrhagic anemia Status: Acute Assessment and Plan: iron studies compatible with iron deficiency anemia with B12 toward low side suggesting component is chronic also but acute drop in hemoglobin was definite acute blood loss also cyanocobalmine 1000 microgram and IV venofer 600 mg today total before d/c (4) Essential (primary) hypertension: Code(s): I10 - Essential (primary) hypertension Status: Acute Assessment and Plan: blood pressure toward low side initially but beta adamaris and at discharge diltiazem resumed (5) UTI (urinary tract infection): Code(s): N39.0 - Urinary tract infection, site not specified Status: Acute Assessment and Plan: had asymptomatic pyuria which grew greater than 100,000 E coli sensitive to all but quinolones. receives 2 separate doses of ceftriaxone while here and will continue Macrobid 100 b.i.d. for 3 more days after discharge DS: Summary Hospital Course Hospital Course: 74-year-old hypertensive female with chronic AFib on anticoagulation admitted with upper GI bleed. Placed on Protonix drip and bleeding subsided. EGD revealed gastric ulcer with no active bleeding. Received 2 units of packed cells and discharging lobe 8.9. no anticoagulation until 01/18 and not until have discussed with primary or grounds/maintenance specialist. repeat EGD 6-8 weeks Time Spent with Patient Time attestation: Total time spent providing and/or coordinating discharge services: 35 minutes Exam Narrative: Exam Narrative: condition on discharge blood pressure 110/60 pulse is 90 saturating 100% on room air afebrile lungs clear CV irregular abdomen soft nontender extremities without edema distal pulses 1+ taking a regular diet and having no more melanotic stools DS: Data Data Completed and Pending Completed studies during hospitalization: Pending at discharge 01/01/20 10:25 Surgical [PTH] Routine Discharge Plan Discharge Attending physician on discharge: Artemio Valdez Consulting providers: Adam Conn ; Jaylen Darnell ; Jay Crane Discharging Clinician: Artemio Valdez Patient Disposition: Home, Self-Care Activity: as tolerated Diet: diabetic and low sodium Discharge Instructions: Schedule follow up EGD with Dr Nolen office in 2 months. Patient Instructions: Antibiotic Form, Rivaroxaban (By mouth), A-fib (Atrial Fibrillation) (DC), Diet for Stomach Ulcers and Gastritis (GEN), Type 2 Diabetes in the Older Adult (DC) Stand Alone Forms: General Discharge Information Follow-up/Referrals: Rebeka Casarez MD [Primary Care Provider] - 2 Weeks Discharge Medications: New nitrofurantoin monohyd/m-cryst [Macrobid] 100 mg capsule 100 mg PO Q12H 3 Days Qty: 6 R
== END 2020-01-02 15:25 | disposition home or self-care (01) | DRG 378 ==
LOC: ANHED 22:41 → ANHIMU 23:13 → ANH3MEDSUR 01-01 18:58 → ANHIMU 01-05 16:00
PROVIDERS: Internal Medicine Gastroenterology; Admitting Provider Internal Medicine; Emergency Provider Emergency Medicine; PCP Family Medicine; Visit Provider Internal Medicine
PROC: 0DJ08ZZ Inspection of Upper Intestinal Tract, Via Natural or Artificial Opening Endoscopic (ICD-10-PCS; CPT 43235; principal; 2020-01-01 10:30)
DX: K25.0 Acute gastric ulcer with hemorrhage (principal); D62 Acute posthemorrhagic anemia; I13.0 Hypertensive heart and chronic kidney disease with heart failure and stage 1 through stage 4 chronic kidney disease, or unspecified chronic kidney disease; I50.32 Chronic diastolic (congestive) heart failure; F33.9 Major depressive disorder, recurrent, unspecified; I48.19 Other persistent atrial fibrillation; E11.22 Type 2 diabetes mellitus with diabetic chronic kidney disease; N18.2 Chronic kidney disease, stage 2 (mild); R82.81 Pyuria; B96.20 Unspecified Escherichia coli [E. coli] as the cause of diseases classified elsewhere; J44.9 Chronic obstructive pulmonary disease, unspecified; E11.42 Type 2 diabetes mellitus with diabetic polyneuropathy; E78.2 Mixed hyperlipidemia; I87.2 Venous insufficiency (chronic) (peripheral); Z79.01 Long term (current) use of anticoagulants; Z98.42 Cataract extraction status, left eye; Z98.41 Cataract extraction status, right eye; Z90.721 Acquired absence of ovaries, unilateral; Z87.891 Personal history of nicotine dependence; E66.9 Obesity, unspecified; Z68.39 Body mass index [BMI] 39.0-39.9, adult
CPT/HCPCS: 36415; 36430; 71046; 80048; 80053; 81001; 82607; 82728; 83540; 83550; 85025; 85027; 86850; 86900; 86901; 86920; 87077; 87086; 87088; 87186; 88305; 88342; 93005; 96361; 96374; 96375; 97161; 97165; 99285; A9270; C9113; G0378; J0696; J1756; J3420; J7030; J7050; J7120; P9016

== ENCOUNTER 2020-01-08 11:46 | Outpatient (CLI) | payer MEDICARE, SELFPAY ==
[2020-01-08 11:59] LABS: Basophils Percent Auto 0.8 % (0.2-1.2); Eosinophils Absolute Auto 0.1 K/mm3 (0-0.3); Eosinophils Percent Auto 1.7 % (0-4.4); Hematocrit 32.3 % (37.0-47.0); Hemoglobin 10.1 g/dL (12.0-15.0); Immature Granulocyte Percent A 1.9 % (0-0.5); Lymphocytes Percent Auto 17.4 % (18.3-44.2); Mean Corpuscular HGB Conc 31.3 g/dl (32-36); Mean Corpuscular Volume 102.2 fl (80-100); Monocytes Absolute Auto 0.5 K/mm3 (0.1-0.6); Monocytes Percent Auto 9.1 % (2.6-8.5); Neutrophils Absolute Auto 3.6 K/mm3 (1.3-6.7); Neutrophils Percent Auto 69.1 % (45.5-73.1); Platelet Count Result 230 k/mm3 (150-375); Red Blood Count 3.16 M/mm3 (4.2-5.4); Red Cell Distribution Width 18.1 % (11.5-14.5); White Blood Count 5.2 K/mm3 (4.5-10.0)
[2020-01-08 12:12] LABS: Anion Gap 6 mmol/L (8-16); Blood Urea Nitrogen 14 mg/dL (7-17); Calcium 8.3 mg/dL (8.4-10.2); Carbon Dioxide 26 mmol/L (22-30); Chloride 105 mmol/L (98-107); Estimated Glomerular Filt Rate 54; Glucose 118 mg/dL (65-105); Sodium 137 mmol/L (137-145)
== END 2020-01-08 11:47 | disposition home or self-care (01) ==
LOC: ANHLAB 11:49
PROVIDERS: PCP Family Medicine; Visit Provider Internal Medicine
DX: I10 Essential (primary) hypertension (principal); K92.2 Gastrointestinal hemorrhage, unspecified
CPT/HCPCS: 36415; 80048; 85025

== ENCOUNTER 2020-03-03 01:36 | Outpatient (CLI) | payer MEDICARE, SELFPAY ==
[2020-03-03 18:17] LABS: SARS-CoV-2 RNA PCR Negative
== END 2020-03-03 01:37 | disposition home or self-care (01) ==
LOC: ANHCOVIDDT 01:36
PROVIDERS: PCP Family Medicine; Visit Provider Internal Medicine Gastroenterology
DX: Z01.812 Encounter for preprocedural laboratory examination (principal); Z20.828 Contact with and (suspected) exposure to other viral communicable diseases
CPT/HCPCS: 87635; C9803; U0003

== ENCOUNTER 2020-03-05 01:07 | Day surgery (SDC) | payer MEDICARE, SELFPAY ==
[2020-02-26 10:56] VITALS: BMI 37.0
[2020-03-05 06:50] VITALS: BP 149/100; PULSE 54; RESP 22; TEMP 36.7; O2SAT 97; BMI 36.8
[2020-03-05 06:50] LABS: Glucose Point of Care 114 (65-105)
[2020-03-05] MEDS: LACTATED RINGERS 1,000 ML 150 ML IV CONT (06:56)
--- NOTE | 2020-03-05 07:01 | WPDANESEPPF ---
Anes - Initial Pre Proc Eval Procedure: Operation Date: 03/05/20 07:30 Proposed Procedures p Esophagogastroduodenoscopy - Adam Conn MD Date/Time: 03/05/20 07:01 Surgeon: Adam Conn MD Pre Op Diagnosis: Gastric Ulcer Patient Data Age: 74 Gender: F Height: 5 ft 9 in Weight: 113 kg Last Vital Signs Temp 36.7 C 03/05/20 06:50 Pulse 54 L 03/05/20 06:50 Resp 22 H 03/05/20 06:50 BP 149/100 H 03/05/20 06:50 Pulse Ox 97 03/05/20 06:50 Allergies Allergy/AdvReac Type Severity Reaction Status Date / Time Penicillins Allergy Unknown Unknown Verified 03/05/20 06:48 Home Medications Medication Instructions Recorded Confirmed Type allopurinol 300 mg tablet 300 mg PO DAILY #90 tablet 07/24/19 02/26/20 Rx polysaccharide iron complex 150 mg 150 mg PO BID #180 cap 09/08/19 02/26/20 Rx iron capsule spironolactone 50 mg tablet 50 mg PO DAILY #30 tablet 10/13/19 02/26/20 Rx atorvastatin 20 mg PO DAILY 12/31/19 02/26/20 History diltiazem HCl [DILT-XR] 120 mg PO DAILY 12/31/19 02/26/20 History furosemide 40 mg PO BID 12/31/19 02/26/20 History magnesium 250 mg PO DAILY 12/31/19 02/26/20 History metformin 500 mg PO BID 12/31/19 02/26/20 History metoprolol tartrate 100 mg PO Q12H 12/31/19 02/26/20 History nitrofurantoin monohyd/m-cryst 100 mg PO Q12H 3 Days #6 cap 01/02/20 02/26/20 Rx [Macrobid] pantoprazole 40 mg PO BID #60 tablet 01/02/20 02/26/20 Rx Laboratory Tests 03/05/20 06:46 POC Capillary Glucose 114 mg/dl H mg/dl (65-105) Patient hx anesthesia problems: none Family hx anesthesia problems: none PMFSH Past Medical History Medical History Chronic diastolic congestive heart failure Chronic kidney disease, stage 2 (mild) Chronic venous stasis dermatitis COPD (chronic obstructive pulmonary disease) Diabetic autonomic neuropathy associated with type 2 diabetes mellitus Essential (primary) hypertension GERD (gastroesophageal reflux disease) GI bleeding 2002, January 2016, November 2016 Idiopathic gout, unspecified site Iron deficiency anemia due to chronic blood loss senior care current use of anticoagulant therapy MDD (major depressive disorder), recurrent episode, mild Mixed hyperlipidemia Persistent atrial fibrillation aaron with synchronized cardioversion December [address] Lopez Pulmonary embolism 2012 Type 2 diabetes mellitus with diabetic neuropathy, unspecified Surgical History Surgical History History of ankle surgery ORIF left ankle July 2007 History of bilateral cataract extraction History of esophagogastroduodenoscopy (EGD) November 2016 demonstrating esophagitis, gastritis and gastric ulcer History of right oophorectomy Hx of tonsillectomy Family History Family History Other Adopted Social History Social History Social History: She lives alone. She is a former smoker but had a brief smoking history many years ago. She denies any alcohol use at all. She denies illicit substance use. Her son Jonatan is her power of area operations director. Smoking packs per day: 1 Smoking cigarettes per day: 20.0 Years smoked: 10 Smoking pack-years: 10.00 Smoking status: Former smoker Smoking end date: 05/07/77 Alcohol intake: never Substance use: never Substance use type: does not use Living arrangements: alone Gender identity (if verbalized by the patient): Female Sexual Orientation (if Verbalized by the Patient): Straight or Heterosexual Spiritual care concerns: No Anes - Eval Final PreProcedure Day of Procedure 03/05/20 07:01 Patient weight: obese Heart: irregular rhythm Lungs: clear to auscultation Airway: Mallampati scale class II Neurological: alert and oriented Last oral intake: >/= 8 hours ASA classif
--- NOTE | 2020-03-05 07:53 | WPDGICN ---
Assessment and Plan Assessment and plan (1) Gastric ulcer: Code(s): K25.9 - Gastric ulcer, unspecified as acute or chronic, without hemorrhage or perforation Status: Acute Assessment and Plan: Gastric ulcer identified in December. Plan is for follow-up EGD at this time. Patient should continue proton pump inhibitors. Avoid nonsteroidal anti-inflammatory agents. (2) Atrial fibrillation with RVR: Code(s): I48.91 - Unspecified atrial fibrillation Status: Acute (3) Type 2 diabetes mellitus with diabetic neuropathy, unspecified: Code(s): E11.40 - Type 2 diabetes mellitus with diabetic neuropathy, unspecified Status: Acute (4) superintendent container terminal current use of anticoagulant therapy: Code(s): Z79.01 - group home (current) use of anticoagulants Status: Acute Assessment and Plan: Cardiology is approved holding anticoagulation briefly for endoscopy. GI Consult Note Consult date/time: 03/05/20 07:53 HPI: Gabriela Castillo is a 74 year old female Seen in evaluation at the request of Dr. kylie salomon Patient has a history of poorly healing gastric ulcer. Initially presented with GI bleeding and melenic stools. An EGD performed on 12/12/2019 revealed a gastric ulcer. Patient has been maintained on proton pump inhibitors. She presents today for follow-up examination. Past medical history is significant for COPD, diabetes and chronic kidney disease. [facility] Past Medical History Medical History Chronic diastolic congestive heart failure Chronic kidney disease, stage 2 (mild) Chronic venous stasis dermatitis COPD (chronic obstructive pulmonary disease) Diabetic autonomic neuropathy associated with type 2 diabetes mellitus Essential (primary) hypertension GERD (gastroesophageal reflux disease) GI bleeding 2002, January 2016, November 2016 Idiopathic gout, unspecified site Iron deficiency anemia due to chronic blood loss superintendent container terminal current use of anticoagulant therapy MDD (major depressive disorder), recurrent episode, mild Mixed hyperlipidemia Persistent atrial fibrillation aaron with synchronized cardioversion December [address] Lopez Pulmonary embolism 2011 Type 2 diabetes mellitus with diabetic neuropathy, unspecified Surgical History Surgical History History of ankle surgery ORIF left ankle July 2007 History of bilateral cataract extraction History of esophagogastroduodenoscopy (EGD) November 2016 demonstrating esophagitis, gastritis and gastric ulcer History of right oophorectomy Hx of tonsillectomy Family History Family History Other Adopted Social History Social History Social History: She lives alone. She is a former smoker but had a brief smoking history many years ago. She denies any alcohol use at all. She denies illicit substance use. Her son Jonatan is her power of commonwealth attorney. Smoking packs per day: 1 Smoking cigarettes per day: 20.0 Years smoked: 10 Smoking pack-years: 10.00 Smoking status: Former smoker Smoking end date: 05/07/77 Alcohol intake: never Substance use: never Substance use type: does not use Living arrangements: alone Gender identity (if verbalized by the patient): Female Sexual Orientation (if Verbalized by the Patient): Straight or Heterosexual Spiritual care concerns: No Meds Home Medications and Allergies Home Medications Medication Instructions Recorded Confirmed Type allopurinol 300 mg tablet 300 mg PO DAILY #90 tablet 07/24/19 02/26/20 Rx polysaccharide iron complex 150 mg 150 mg PO BID #180 cap 09/08/19 02/26/20 Rx iron capsule spironolactone 50 mg tablet 50 mg PO DAILY #30 tablet 10/13/19 02/26/20 Rx atorvastatin 20 mg PO DAILY 12/31/19 02/26/20 History diltiazem HCl [
[2020-03-05 07:54] VITALS: BP 139/94; PULSE 106; RESP 21; O2SAT 93
[2020-03-05 08:06] VITALS: BP 142/89; PULSE 94; RESP 14; O2SAT 93
[2020-03-05 08:16] VITALS: BP 140/78; PULSE 98; RESP 16; O2SAT 95
== END 2020-03-05 08:45 | disposition home or self-care (01) ==
PROVIDERS: PCP Family Medicine; Visit Provider Internal Medicine Gastroenterology
PROC: 0DJ08ZZ Inspection of Upper Intestinal Tract, Via Natural or Artificial Opening Endoscopic (ICD-10-PCS; CPT 43235; principal; 2020-03-05 07:30)
DX: Z09 Encounter for follow-up examination after completed treatment for conditions other than malignant neoplasm (principal); K25.3 Acute gastric ulcer without hemorrhage or perforation; K29.50 Unspecified chronic gastritis without bleeding; I13.0 Hypertensive heart and chronic kidney disease with heart failure and stage 1 through stage 4 chronic kidney disease, or unspecified chronic kidney disease; N18.2 Chronic kidney disease, stage 2 (mild); E11.22 Type 2 diabetes mellitus with diabetic chronic kidney disease; I50.32 Chronic diastolic (congestive) heart failure; K21.9 Gastro-esophageal reflux disease without esophagitis; M10.9 Gout, unspecified; F33.0 Major depressive disorder, recurrent, mild; E78.2 Mixed hyperlipidemia; E11.43 Type 2 diabetes mellitus with diabetic autonomic (poly)neuropathy; E11.40 Type 2 diabetes mellitus with diabetic neuropathy, unspecified; J44.9 Chronic obstructive pulmonary disease, unspecified; Z79.84 Long term (current) use of oral hypoglycemic drugs
CPT/HCPCS: 43239; 88305; 88342; J2001; J2704; J7120

== ENCOUNTER 2020-03-20 06:51 | Outpatient (NON) | payer MEDICARE, SELFPAY ==
[2020-03-23 12:47] LABS: SARS-CoV-2 RNA PCR Negative
== END 2020-03-20 06:52 ==
PROVIDERS: PCP Family Medicine; Visit Provider Family Medicine
DX: Z20.828 Contact with and (suspected) exposure to other viral communicable diseases (principal); R68.89 Other general symptoms and signs
CPT/HCPCS: 87635; C9803; U0003

== ENCOUNTER → 2020-03-22 10:00 | Outpatient (CLI) | payer MEDICARE, SELFPAY ==
--- NOTE | ~2020-03-22 | CT_ITS ---
EXAMINATION: CT brain wo con EXAM DATE: 03/22/2020 10:18 INDICATION: Fall 2-3 weeks ago. Increasing confusion. Disoriented. Visual problem, unable to focus. TECHNIQUE: Spiral CT of the head was performed without contrast. Axial, coronal and sagittal images were reviewed. The dose-length product (DLP) for this examination was 599.57 mGy-cm. The exposure w as tailored according to patient size, and iterative reconstruction (ASIR) was used as additional dos e reduction technique. Comparison is made to prior examination from 07/11/2007. FINDINGS: There is 7 mm hypodensity in the right thalamus, density most consistent with subacute infa rction. This is new compared to 2007. There is been interval progression in the age-related moderate microangiopathy and cerebral atrophy. No brain mass, acute intracranial hemorrhage, extra-axial colle ctions or obstructive hydrocephalus. Bilateral cataract surgery. IMPRESSION: Right thalamic lacunar infarction, suspect subacute age. Atrophy and microangiopathy. Reviewed, dictated and finalized at location A. STMENT ANALYST IMPRESSION: Right thalamic lacunar infarction, suspect subacute age. Atrophy a nd microangiopathy.
== END ==
PROVIDERS: PCP Family Medicine; Visit Provider Family Medicine
DX: I63.81 Other cerebral infarction due to occlusion or stenosis of small artery (principal)
CPT/HCPCS: 70450

== ENCOUNTER 2020-07-08 11:47 | Outpatient (CLI) | payer MEDICARE, SELFPAY ==
[2020-07-08 12:20] LABS: Basophils Absolute Auto 0.1 K/mm3 (0.0-0.1); Basophils Percent Auto 0.5 % (0.2-1.2); Eosinophils Absolute Auto 0.5 K/mm3 (0-0.3); Eosinophils Percent Auto 4.9 % (0-4.4); Hematocrit 36.3 % (37.0-47.0); Hemoglobin 11.8 g/dL (12.0-15.0); Immature Granulocyte Absolute 0.11 K/mm3 (0.00-0.031); Immature Granulocyte Percent A 1.2 % (0-0.5); Lymphocytes Absolute Auto 1.02 K/mm3 (0.9-3.2); Lymphocytes Percent Auto 11.1 % (18.3-44.2); Mean Corpuscular HGB Conc 32.5 g/dl (32-36); Mean Corpuscular Hemoglobin 30.4 pg (26-34); Mean Corpuscular Volume 93.6 fl (80-100); Mean Platelet Volume 11.2 fl (7.4-10.4); Monocytes Absolute Auto 0.5 K/mm3 (0.1-0.6); Monocytes Percent Auto 5.2 % (2.6-8.5); Neutrophils Absolute Auto 7.1 K/mm3 (1.3-6.7); Neutrophils Percent Auto 77.1 % (45.5-73.1); Platelet Count Result 198 k/mm3 (150-375); Red Blood Count 3.88 M/mm3 (4.2-5.4); Red Cell Distribution Width 17.3 % (11.5-14.5); White Blood Count 9.2 K/mm3 (4.5-10.0)
[2020-07-08 12:37] LABS: Alanine Aminotransferase 7 U/L (4-35); Albumin Level 4.1 g/dL (3.5-5.1); Alkaline Phosphatase 101 U/L (38-126); Anion Gap 7 mmol/L (8-16); Aspartate Amino Transferase 16 U/L (14-36); Bilirubin,Total 0.7 mg/dL (0.2-1.3); Blood Urea Nitrogen 49 mg/dL (7-17); Calcium 9.4 mg/dL (8.4-10.2); Carbon Dioxide 28 mmol/L (22-30); Chloride 99 mmol/L (98-107); Estimated Glomerular Filt Rate 14; Glucose 126 mg/dL (65-105); Potassium 4.3 mmol/L (3.4-5.0); Sodium 134 mmol/L (137-145)
== END 2020-07-08 11:48 | disposition home or self-care (01) ==
LOC: ANHLAB 11:50
PROVIDERS: PCP Family Medicine; Visit Provider Family Medicine
DX: I10 Essential (primary) hypertension (principal); E11.9 Type 2 diabetes mellitus without complications; E03.9 Hypothyroidism, unspecified
CPT/HCPCS: 36415; 80053; 83036; 84443; 85025

== ENCOUNTER → 2020-07-17 07:51 | Outpatient (CLI) | payer MEDICARE, SELFPAY ==
--- NOTE | ~2020-07-17 | US_ITS ---
US abdomen complete EXAMINATION: US Abdomen Complete INDICATION: Right kidney disease stage IV PROCEDURE: Realtime High Resolution abdomen ultrasound. COMPARISON: MRA abdomen dated 10/09/2006 FINDINGS: There are gallstones. No significant gallbladder wall thickening or pericholecystic fluid. Common bile duct measures 3 mm. Liver echotexture within normal limits without focal mass. Pancreas within normal limits. Pancreati c tail is obscured by bowel gas. Spleen is unremarkeable. Renal echotexture is within normal limits bilaterally without hydronephrosis, contour deforming mass or renal stone. Right kidney measures 9 cm . Left kidney measures 10.7 cm. Visualized aspects of the aorta and IVC are within normal limits. Portal vein is patent. No sonograph ic Sarmiento's sign indicated by the technologist. IMPRESSION: 1: Cholelithiasis. Reviewed, dictated and finalized at location A. NK CONSULTANT IMPRESSION: 1: Cholelithiasis.
== END ==
PROVIDERS: PCP Family Medicine; Visit Provider Family Medicine
DX: N18.4 Chronic kidney disease, stage 4 (severe) (principal); K80.20 Calculus of gallbladder without cholecystitis without obstruction
CPT/HCPCS: 76700

== ENCOUNTER 2021-10-14 15:53 | Outpatient (CLI) | payer MEDICARE, SELFPAY ==
[2021-10-14 16:16] LABS: Basophils Percent Auto 0.8 % (0.2-1.2); Eosinophils Absolute Auto 0.3 K/mm3 (0-0.3); Eosinophils Percent Auto 4.7 % (0-4.4); Hematocrit 36.6 % (37.0-47.0); Hemoglobin 11.3 g/dL (12.0-15.0); Immature Granulocyte Absolute 0.02 K/mm3 (0.00-0.031); Immature Granulocyte Percent A 0.4 % (0-0.5); Lymphocytes Absolute Auto 0.81 K/mm3 (0.9-3.2); Lymphocytes Percent Auto 15.3 % (18.3-44.2); Mean Corpuscular HGB Conc 30.9 g/dl (32-36); Mean Corpuscular Hemoglobin 29.3 pg (26-34); Mean Corpuscular Volume 94.8 fl (80-100); Mean Platelet Volume 10.8 fl (7.4-10.4); Monocytes Absolute Auto 0.5 K/mm3 (0.1-0.6); Neutrophils Absolute Auto 3.7 K/mm3 (1.3-6.7); Neutrophils Percent Auto 69.8 % (45.5-73.1); Platelet Count Result 187 k/mm3 (150-375); Red Blood Count 3.86 M/mm3 (4.2-5.4); Red Cell Distribution Width 15.7 % (11.5-14.5); White Blood Count 5.3 K/mm3 (4.5-10.0)
[2021-10-14 16:31] LABS: Alanine Aminotransferase 10 U/L (6-35); Alkaline Phosphatase 96 U/L (38-126); Anion Gap 8 mmol/L (8-16); Aspartate Amino Transferase 21 U/L (14-36); Bilirubin,Total 0.4 mg/dL (0.2-1.3); Blood Urea Nitrogen 28 mg/dL (7-17); Calcium 8.5 mg/dL (8.4-10.2); Carbon Dioxide 25 mmol/L (22-30); Chloride 104 mmol/L (98-107); Estimated Glomerular Filt Rate 26; Glucose 90 mg/dL (65-110); Potassium 4.9 mmol/L (3.4-5.0); Sodium 137 mmol/L (137-145)
== END 2021-10-14 15:54 | disposition home or self-care (01) ==
LOC: ANHLAB 16:00
PROVIDERS: Visit Provider Nurse Practitioner Adult Health
DX: R53.83 Other fatigue (principal)
CPT/HCPCS: 36415; 80053; 85025